=== PATIENT | male | born 1990 | race Caucasian/White ===

== ENCOUNTER 2020-07-02 05:44 | Emergency (ER) | payer OTHER ==
[2020-07-02] MEDS ORDERED: solu-MEDROL 125 MG IV ONE (06:11)
[2020-07-02] MEDS ORDERED: Zofran 4 MG/2 ML VIAL IV ONE (06:12)
[2020-07-02] MEDS ORDERED: Hydromorphone 1 mg/ml Injection IV ONE (06:12)
[2020-07-02] MEDS ORDERED: Hydromorphone 1 mg/ml Injection ONE (06:23)
[2020-07-02] MEDS ORDERED: Zofran 4 MG/2 ML VIAL ONE (06:23)
[2020-07-02] MEDS ORDERED: solu-MEDROL 125 MG ONE (06:23)
--- NOTE | 2020-07-02 06:40 | ERPHSYRPT ---
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 He states, "I was in some awkward positions and the light got into my eyes some. It was ok yesterday but when I woke up this morning at appox 3am, I could not open my eyes". Eyes bilat are red, swollen, pt is unable to open them on his own. 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 This morning, approximately 3 AM, he was having some burning pain in both of his eyes. He states he could not see in the pain was significant. Patient states he was wearing his welding mask but he did state that he had to hold onto it because it was not fitting well and there was probably light that intermittently and jeevan odically did reach his eyes. Timing/Duration: today Location: bilateral eyes Severity: moderate Apparent Injury: yes Associated Symptoms: pain, burning, sensitivity to light, redness, matting, foreign body sensation Welding Arc/Tanning Bed Exposure: Yes Allergies/Adverse Reactions: cefaclor [From Ceclor] Adverse Reaction (Intermediate, Verified 07/02/20 06:00) Rash Home Medications: Duloxetine HCl [Cymbalta] 30 mg PO DAILY 07/02/20 [History] clonazePAM [Klonopin] 1 mg PO BID 07/02/20 [History] Hx Tetanus, Diphtheria Vaccination/Date Given: No Hx Influenza Vaccination/Date Given: Yes Hx Pneumococcal Vaccination/Date Given: No Immunizations Up to Date: No Travel Risk - International Travel Have you traveled outside of the country in past 3 weeks: No - Coronavirus Screening Are you exhibiting any of the following symptoms?: No Close contact with a COVID-19 positive Pt in past 14-21 Days: No - Review of Systems Constitutional: No Symptoms, Night Sweats Eyes: Eye Pain (Bilateral), Eye Redness (Bilateral), Foreign Body Sensation (Bilateral) Ears, Nose, & Throat: No Symptoms Respiratory: No Symptoms Cardiac: No Symptoms Abdominal/Gastrointestinal: No Symptoms Genitourinary Symptoms: No Symptoms Musculoskeletal: No Symptoms Skin: No Symptoms Neurological: No Symptoms Psychological: No Symptoms Endocrine: No Symptoms Hematologic/Lymphatic: No Symptoms Immunological/Allergic: No Symptoms All Other Systems: Reviewed and Negative - Past Medical History Pertinent Past Medical History: Yes Neurological History: No Pertinent History ENT History: No Pertinent History Cardiac History: Hypertension Respiratory History: No Pertinent History Endocrine Medical History: No Pertinent History Musculoskeletal History: Fractures GI Medical History: GERD History: No Pertinent History Psycho-Social History: Depression Male Reproductive Disorders: No Pertinent History - Past Surgical History Past Surgical History: Yes Neuro Surgical History: No Pertinent History Cardiac: No Pertinent History Respiratory: No Pertinent History Gastrointestinal: No Pertinent History Genitourinary: No Pertinent History Musculoskeletal: Orthopedic Surgery Male Surgical History: No Pertinent History Other Surgical History: tubes in ear. torn ACL/MCL repair. thyroid removed. cyst removed behind knee - Social History Smoking Status: Current every day smoker How long have you smoked: 10 Exposure to second hand smoke: No Drug Use: none Patient Lives Alone: No - Nursing Vital Signs Nursing Vital Signs: Initial Vital Signs Temperature 98.3 F 07/02/20 05:49 Pulse Rate 77 07/02/20 05:49 Respiratory Rate 18 07/02/20 05:49 Blood Pressure 136/93 07/02/20 05:49 O2 Sat by Pulse Oximetry 96 07/02/20 05:49 Pain Scale Pain Intensity 7 - Physical Exam General Appearance: mild distress, alert, anxiety Vision Acuity Right Eye: Unable to assess Vision Acuity Left Eye: Unable to assess Eye Exam: bilateral eye: conjunctival hemorrhage Ears, Nose, Throat Exam: normal ENT inspection, moist mucous membranes Neck Exam: normal inspection, non-tender, supple, full range of motion Respiratory Exam: No chest tenderness Gastrointestinal Exam: No tenderness Extremity Exam: normal inspection, normal range of motion, pelvis stable Neurologic: alert, oriented x 3, cooperative, manual plate filler II-XII nml as tested, normal mood/affect, nml cerebellar function, nml station & gait, sensation nml Skin Exam: normal color, warm, dry Lymphatic: No adenopathy SpO2 Interpretation: normal SpO2: 96 O2 Delivery: Room Air - Course Nursing assessment & vital signs reviewed: Yes Ordered Tests: Active Orders 24 hr Category Date Time Status IV Insertion STAT Care 07/02/20 06:11 Active Medication Summary Discontinued Medications Generic Name Dose Route Start Last Admin Trade Name Darya PRN Reason Stop Dose Admin Erythromycin 3.5 gm 07/02/20 06:46 07/02/20 06:52 Erythromycin 3.5 Gm Oph. OP 07/02/20 06:47 Not Given STAT ONE Erythromycin Confirm 07/02/20 06:48 Erythromycin 1 Gm Administered 07/02/20 06:49 Dose 1 gm .ROUTE .STK-MED ONE Erythromycin 1 gm 07/02/20 06:50 07/02/20 06:51 Erythromycin 1 Gm OP 07/02/20 06:51 1 gm STAT STA Administration Hydromorphone HCl 1 mg 07/02/20 06:12 07/02/20 06:28 Hydromorphone 1 Mg/Ml Injection IV 07/02/20 06:13 1 mg STAT ONE Administration Hydromorphone HCl Confirm 07/02/20 06:23 Hydromorphone 1 Mg/Ml Injection Administered 07/02/20 06:24 Dose 1 mg .ROUTE .STK-MED ONE Methylprednisolone Sodium Succinate 125 mg 07/02/20 06:11 07/02/20 06:28 Solu-Medrol 125 Mg IV 07/02/20 06:12 125 mg STAT ONE Administration Methylprednisolone Sodium Succinate Confirm 07/02/20 06:23 Solu-Medrol 125 Mg Administered 07/02/20 06:24 Dose 125 mg .ROUTE .STK-MED ONE Ondansetron HCl 4 mg 07/02/20 06:12 07/02/20 06:28 Zofran 4 Mg/2 Ml Vial IV 07/02/20 06:13 4 mg STAT ONE Administration Ondansetron HCl Confirm 07/02/20 06:23 Zofran 4 Mg/2 Ml Vial Administered 07/02/20 06:24 Dose 4 mg .ROUTE .STK-MED ONE - Progress Progress: improved, pain not gone completely Progress Note: 07/02/20 06:40 Patient declines CAT scan of the head. He does not think it is necessary. Counseled pt/family regarding: diagnosis, need for follow-up - Departure Departure Disposition: Home Clinical Impression: Exposure to welding light (arc), initial encounter Condition: Stable Critical Care Time: No Additional Instructions: Cool compresses as needed. Take medication as prescribed. Follow-up with contract programmer in the next 48 hours for reevaluation. Prescriptions: Hydrocodone/APAP 5/325 [Barnett 5/325 mg] 1 each PO Q8H PRN PRN #9 tablet MDD 3 PRN Reason: Pain Prednisone 10 mg [Deltasone 10 mg] 10 mg PO TID #12 tablet Erythromycin Base 3.5 gm [Erythromycin 3.5 GM OPHTH.] 3.5 gm OP QID #1 tube
[2020-07-02] MEDS ORDERED: Erythromycin 3.5 GM OPHTH. OP ONE (06:46)
[2020-07-02] MEDS ORDERED: Erythromycin 1 GM ONE (06:48)
[2020-07-02] MEDS ORDERED: Erythromycin 1 GM OP STA (06:50)
[2020-07-02 07:11] VITALS: BP 118/72; PULSE 68; O2SAT 93
== END 2020-07-02 07:21 | disposition home or self-care (01) ==
LOC: ED 05:44
DX: H16.133 Photokeratitis, bilateral (principal); W89.8XXA Exposure to other man-made visible and ultraviolet light, initial encounter
CPT/HCPCS: 96374; 96375; 99284; J1170; J2405; J2930; A9270-GY